=== PATIENT | male | born 1985 | race Caucasian/White ===

== ENCOUNTER 2017-02-16 02:50 | Inpatient (IN) | payer OTHER ==
--- NOTE | ~2017-02-16 | CO ---
Unit #: [id number] #: [id number] Patient: SERGO THOMAS [id number] [facility]. [place], [place] [address] [id number] I MR#: [id number] NAME: SERGO THOMAS ROOM: 45 Age: 31 Sex: M Admission Date: 02/16/2017 : 1985 Attending Physician: Molina Iverson M.D. Consultation Date: 02/18/2017 CONSULTATION REPORT REASON FOR CONSULTATION Confusion, agitation, delirium, substance abuse, bipolar disorder. HISTORY OF PRESENT ILLNESS Mr. Sergo Thomas is a 31-year-old white male who was admitted on 02/16/2017 with altered mental status, confusion, agitation. The patient was tested positive for amphetamine and opiates, and also took his bipolar medication Tegretol and trazodone. The patient seen in ICU 2, bed 9, at [facility] on 02/18/2017. The patient was unable to provide any reliable information, still confused, sleepy. The patient needed bilateral restrain. The patient was able to wake up with touch prompt and able to answer question about his name. The patient unable to provide any other information. PAST PSYCHIATRIC HISTORY Remarkable for history of bipolar mood disorder, history of suicide attempt, overdose, prior substance abuse previously treated at [facility]. At the time of admission, the patient was agitated and somnolent, increasingly aggressive. MEDICAL HISTORY The patient has a history of intravenous drug abuse, possible history of seizure disorder, history of MRSA. MEDICATION HISTORY The patient is currently on vancomycin, hydromorphone, Solu-Medrol. Please refer to MAR for details. FAMILY HISTORY AND SOCIAL HISTORY The patient has a good support system. No history of abuse. History of substance abuse as mentioned above. Urine drug screen was positive for opioids and amphetamines. REVIEW OF SYSTEMS Complete review of systems is unremarkable except for agitation. MENTAL STATUS EXAMINATION The patient vital signs; pulse 89, respirations 18, blood pressure 117/79, oxygen saturation 100%. General appearance; the patient dressed in hospital attire. The patient needed bilateral hand restrain, receiving IV fluids. Attention span and concentration, poor. Speech, minimal. Orientation, unable to assess. Confused. Mood and affect, flat. Thought process and thought content, unable to assess. Recent and remote memory, language, fund of knowledge, unable to assess. Insight and judgment, Unit #: [id number] #: [id number] Patient: SERGO THOMAS. DIAGNOSES Delirium, F05; amphetamine use disorder, severe, F15.20; opioid use disorder, severe, F11.20; bipolar mood disorder, recurrent severe, depressed, F31.9. Secondary diagnosis: Deferred. Medical diagnosis: Please refer to H and P. Stressors: Psychosocial stressor. ASSESSMENT/PLAN 1. Supportive psychotherapy and psychoeducation provided to the patient and family, but the patient unable to comprehend at this time. 2. Recommending at this time to continue with restraint for safety and continue with the inpatient treatment. 3. Advised Zyprexa 10 mg b.i.d. to help with mood symptom and above-mentioned symptom and advised to hold medication if the patient is too sleepy. We will continue to follow. Please feel free to call if any questions, telephone #[phone]. Dictated by... Ashley Carney/darrius TD: 02/19/2017 13:57 JOB #: [id number] CONSULTATION REPORT Page 1 of 1 X Natanael Nichols MD CONSULTATION REPORT
--- NOTE | ~2017-02-16 | CR72 ---
[facility] A Service of [facility] & [facility] RADIOLOGY TEXT RESULTS PATIENT: NEW HA LOCATION: [address] : [birth year] UNIT #: [id number] AGE: [address]: Moilna Iverson MD SEX: M ORDER DR: [id number] [facility] [address]. [place], [place] [address] [id number] I MR#: [id number] Acc #: [id number] NAME: NEW HA : 1985 SEX: M STUDY DATE/TIME: 02/16/2017 12:26 UNIT: [facility] ROOM: [facility] STUDY DESCRIPTION: CR Chest Single View Portable Attending Physician: Molina Iverson M.D. Ordering Physician: Molina Iverson M.D. Primary Care Physician: No Primary Care Physician MEDICAL IMAGING REPORT This report is preliminary unless electronic signature is present EXAM Portable chest 02/16/2017. INDICATIONS Shortness of air. Overdose this morning. COMPARISON AP portable chest compared with earlier today. FINDINGS Cardiac and mediastinal contours are normal. There is central vascular congestion with minimal bilateral perihilar opacities. This could reflect a mild degree of edema. Attention on followup is recommended. There is no pneumothorax. IMPRESSION Persistent mild vascular congestion, and there may be some minimal perihilar infiltrate bilaterally. This would suggest edema. Continued follow up is recommended. Dictated by... Ziggy Chaudhry Jr., M.D. THIS IS AN ELECTRONICALLY VERIFIED REPORT Ziggy Chaudhry Jr., M.D. at 02/18/2017 7:18 AM SIENA/zeke TD: 02/16/2017 17:37 JOB #: [id number] MEDICAL IMAGING REPORT Page 1 of 1 COPY
--- NOTE | ~2017-02-16 | CR72 ---
[facility] A Service of [facility] RADIOLOGY TEXT RESULTS PATIENT: NEW HA LOCATION: [address] : [birth year] UNIT #: [id number] AGE: [address]: Molina Iverson MD SEX: M ORDER DR: [id number] [facility] [address] [facility]. [place], [place] [address] [id number] I MR#: [id number] Acc #: [id number] NAME: NEW HA : 1985 SEX: M STUDY DATE/TIME: 02/19/2017 5:48 UNIT: [facility] ROOM: [facility] STUDY DESCRIPTION: CR Chest Single View Portable Attending Physician: Molina Iverson M.D. Ordering Physician: Robert Sraavia M.D. Primary Care Physician: No Primary Care Physician MEDICAL IMAGING REPORT This report is preliminary unless electronic signature is present EXAM Frontal chest 02/19/2017 INDICATIONS Shortness of air and confusion. Overdose patient. Dobbhoff tube placement. Shortness of breath. History of tobacco abuse. TECHNIQUE Frontal chest COMPARISON 02/18/2017 FINDINGS There has been interval placement of an enteric tube. Tip is below the diaphragm, but not in the field of view. Cardiac silhouette is stable. Lung volumes are low. Bronchovascular crowding with redemonstration of hazy opacities in the lung bases, right greater than left. No new effusion or pneumothorax. IMPRESSION 1. Slight improvement inspiratory result. Persistent haziness in the lung bases, right greater than left. 2. New enteric tube present, and the tip is below the diaphragm, but not om the field of view. Dictated by... Dustin Tenorio M.D. THIS IS AN ELECTRONICALLY VERIFIED REPORT Dustin Tenorio M.D. at 02/19/2017 3:31 PM [facility] A Service of [facility] RADIOLOGY TEXT RESULTS PATIENT: NEW HA LOCATION: [address] : [birth year] UNIT #: [id number] AGE: [address]: Molina Iverson MD SEX: M ORDER DR: MAYDA/zeke TD: 02/19/2017 13:30 JOB #: [id number] MEDICAL IMAGING REPORT Page 1 of 1 COPY
--- NOTE | ~2017-02-16 | CR7 ---
[facility] A Service of [facility] & [facility] RADIOLOGY TEXT RESULTS PATIENT: NEW HA [facility] [birth year] UNIT #: [id number] AGE: [address]: Molina Iverson MD SEX: M ORDER DR: [id number] [place], [place] [address] [id number] I MR#: [id number] Acc #: [id number] NAME: NEW HA : 1985 SEX: M STUDY DATE/TIME: 02/18/2017 11:04 UNIT: [facility] ROOM: [facility] STUDY DESCRIPTION: CR Abdomen Single AP View Attending Physician: Molina Iverson M.D. Ordering Physician: Molina Iverson M.D. Primary Care Physician: Primary Care Physician No MEDICAL IMAGING REPORT This report is preliminary unless electronic signature is present EXAM Frontal abdomen 02/18/2017 INDICATIONS Tube placement. Overdose patient. TECHNIQUE Frontal abdomen was performed COMPARISON No comparisons FINDINGS Enteric tube tip is at the level of the mid to distal body stomach. Postop changes of cholecystectomy present. Nonspecific hyperdense material projects over the right lower quadrant most likely reflecting flocculated barium or less likely sequela of prior shrapnel injury. Correlate with procedural history in this patient. There is mild levoscoliosis of the thoracolumbar spine. IMPRESSION Enteric tube tip at the level of the [id number] body stomach. Dictated by... Dustin Tenorio M.D. THIS IS AN ELECTRONICALLY VERIFIED REPORT Dustin Tenorio M.D. at 02/18/2017 5:04 PM DENNISEY/josh TD: 02/18/2017 15:17 JOB #: [id number] [facility] A Service of [facility] & [facility] RADIOLOGY TEXT RESULTS PATIENT: NEW HA LOCATION: [facility] : [birth year] UNIT #: [id number] AGE: [address]: Molina Iverson MD SEX: M ORDER DR: MEDICAL IMAGING REPORT Page 1 of 1 COPY
--- NOTE | ~2017-02-16 | DS ---
Unit #: [id number] #: [id number] Patient: NEW HA [id number] [address] [place], [place] [address] [id number] I MR#: [id number] NAME: NEW HA ROOM: 45 Age: 32 Sex: M Admission Date: 02/16/2017 : 1985 Discharge Date: 02/21/2017 Attending Physician: Molina Iverson M.D. Primary Care Physician: No Primary Care Physician DISCHARGE SUMMARY REASON FOR ADMISSION Suicidal intent/trazodone overdose. HISTORY OF PRESENT ILLNESS/HOSPITAL COURSE Please see H and P for complete details. Patient initially was transferred from outside facility secondary to above, secondary to acute respiratory failure, was intubated en route, was placed in the ICU. Consultation was placed to Dr. Saravia and associates for evaluation. Patient underwent routine ICU course. After he was extubated, he was placed on 72-hour hold secondary to concern for possible suicidal intention. Consultation was also placed to Dr. Nichols who medically cleared patient for discharge home. The patient was also seen and evaluated by Dr. Dempsey of neurology services secondary to prior history of seizure disorder as well as management of seizures. Dr. Dempsey made recommendation for Keppra 500 mg p.o. b.i.d. in lieu of Trileptal. It was later learned the patient actually took an increased amount of Trileptal secondary to suicidal intent. His electrolytes and other laboratory studies were appropriately corrected while here. He did have underlying presumed aspiration pneumonia to which he was treated with IV Zosyn and subsequently transitioned to p.o. Augmentin at time of discharge. FINAL DISCHARGE DIAGNOSES 1. Suicidal intention. 2. Trileptal overdose. 3. Prior history of seizure disorder. 4. Presumed clinical aspiration pneumonia. FINAL DISCHARGE MEDICATIONS 1. Augmentin 875 mg p.o. b.i.d. x2 days. 2. Keppra 500 mg p.o. b.i.d. DISCHARGE CONDITION Stable. DISCHARGE DISPOSITION Home. FOLLOWUP 1. Followup outpatient family physician within 7-10 days. 2. Followup for supportive psych[facility] as [facility] Psychiatry did make a recommendation for Zyprexa Unit #: [id number] #: [id number] Patient: NEW HA 10 mg p.o. b.i.d. Patient stated that he would consider this medication after discussion with his family physician. Dictated by... Ashley Quinonez/terese TD: 03/20/2017 10:24 JOB #: [id number] DISCHARGE SUMMARY Page 1 of 1 X Molina Iverson MD X DISCHARGE SUMMARY
--- NOTE | ~2017-02-16 | FU ---
[facility] DATE: 02/19/17 Patient: NEW HA Physician: HARMONY Address: [address] [place] [address] Room/Bed: [address], Zip: [place] [address] Admit Date: 02/16/17 Date of : [birth year] Height: 5 8 Weight: 160 73 NUTRITION MONITORING/FOLLOW-UP: Reason: PT SEEN FOR FOLLOW-UP/ENTERAL NUTRITION SUPPORT DX: OVERDOSE Anthropometrics: 5'6", WT: 160# (73 KG), BMI: 25.8 -ADMIT WEIGHT: 151# Labs: GLU: 118, PHOS: 2.0 Meds: SOLU-MEDROL, KCL, MAG SULFATE, ZOFRAN I&O's: 9088/5755 Skin: PREVIOUSLY NOTED EDEMA: BUE TRACE EDEMA Estimated Nutrition Needs: 3169-7019 KCAL 75-90 G PRO Assessment: CHART REVIEWED AND EVENTS NOTED. PT SEEN FOR ENTERAL NUTRITION SUPPORT FOLLOW-UP. PT ASLEEP AT TIME OF VISIT RECEIVING ALTERNATIVE NUTRITION SUPPORT OF JEVITY 1.5 @ 40 ML/HR. PER RN AND CHART, PT TOLERATING EN, NOTING NO ISSUES AT THIS TIME. PER PUMP HISTORY, PT RECEIVING ~58% TOTAL VOLUME PAST 24 HOURS. PT DID NOT WAKE TO VERBAL CUES. FAMILY IN ROOM ASLEEP AT BEDSIDE. PT NOT APPROPRIATE FOR DIET EDUCATION AT THIS TIME. RD TO CONTINUE TO FOLLOW. Dx: INADEQUATE PROTEIN-ENERGY INTAKE R/T CURRENT DIAGNOSIS AEB NPO.-RESOLVED/IN PROGRESS NEW DX: INADEQUATE PROTEIN-ENERGY INTAKE R/T CURRENT DIAGNOSIS AEB PT RECEIVING ENTERAL NUTRITION SUPPORT. Intervention: 1. ENTERAL NUTRITION SUPPORT Monitoring, Evaluation and Goals: 1. ORAL INTAKE; ADVANCE DIET AND CONSUME/TOLERATE >50% OF MEALS-NOT ACTIVE 2. ENTERAL NUTRITION; PROVIDE >80% ESTIMATED GOAL VOLUME-NOT MET/IN PROGRESS 3. WEIGHTS; PROMOTE WEIGHT MAINTENANCE-IN PROGRESS 4. LABS; WNL-IN PROGRESS 5. GI; PROMOTE REGULAR BOWEL FUNCTION-IN PROGRESS MONITOR: [facility] DATE: 02/19/17 Patient: NEW HA Physician: HARMONY Address: [address] [place] [address] Room/Bed: [address], Zip: [place] [address] Admit Date: 02/16/17 Date of : [birth year] Height: 5 8 Weight: 160 73 -TF RATE/RESIDUALS -WEIGHTS -TANK COOPER EVAL? -LABS Recommendations: 1. ADVANCE CURRENT ENTERAL NUTRITION SUPPORT OF JEVITY 1.5 TO GOAL RATE OF 50 ML/HR X 24 HOURS PER PT TOLERANCE -PROVIDES 1800 KCAL, 77 G PRO, 912 ML FREE H20 ADD FREE H20 FLUSHES PER MD 2. ONCE FEASIBLE, CONTINUE TANK COOPER INTERVENTION TO DETERMINE IF THE PT CAN TOLERATE PO INTAKE RD WILL F/U PER PROTOCOL PT IS MOD/SEVERELY COMPROMISED Respectfully, CORNELIUS ESTRADA MS, RD, LD Food and Nutritional Services [facility] [place] [facility] cc: client file
--- NOTE | ~2017-02-16 | CR72 ---
[facility] A Service of [facility] RADIOLOGY TEXT RESULTS PATIENT: NEW HA LOCATION: [address] : [birth year] UNIT #: [id number] AGE: [address]: Molina Iverson MD SEX: M ORDER DR: [id number] [place], [place] [address] [id number] I MR#: [id number] Acc #: [id number] NAME: NEW HA : 1985 SEX: M STUDY DATE/TIME: 02/18/2017 4:42 UNIT: [facility] ROOM: [facility] STUDY DESCRIPTION: CR Chest Single View Portable Attending Physician: Molina Iverson M.D. Ordering Physician: Robert Saravia M.D. Primary Care Physician: Primary Care Physician No MEDICAL IMAGING REPORT This report is preliminary unless electronic signature is present EXAM Portable chest INDICATIONS Shortness of air and chest congestion today. PROCEDURE Frontal view chest. COMPARISON 02/17/2017 FINDINGS Heart size is stable, patchy opacities in the lung bases are unchanged. No new dense consolidation or pneumothorax. IMPRESSION Stable. Dictated by... Krzysztof Alcala M.D. THIS IS AN ELECTRONICALLY VERIFIED REPORT Krzysztof Alcala M.D. at 02/18/2017 10:27 PM EED/ruben TD: 02/18/2017 05:15 JOB #: [id number] MEDICAL IMAGING REPORT [facility] A Service of [facility] RADIOLOGY TEXT RESULTS PATIENT: NEW HA LOCATION: [address] : [birth year] UNIT #: [id number] AGE: [address]: Molina Iverson MD SEX: M ORDER DR: Page 1 of 1 COPY
--- NOTE | ~2017-02-16 | A ---
[facility] Nutrition Therapy DATE: 02/17/17 Patient: NEW HA Physician: HARMONY Address: [address] [facility] Room/Bed: [address], Zip: [place] [address] Admit Date: 02/16/17 Date of : [birth year] Height: 5 8 Weight: 154 70 NUTRITIONAL ASSESSMENT: REASON: NPO IN ICU ASSESSMENT PT IS 31 Y.O. MALE ADMITTED FOR OVERDOSE PMH: POLYSUBSTANCE ABUSE, IV DRUG ABUSE, SEIZURE DISORDER, DEPRESSION, GERD, MRSA, ASTHMA, COLON RESECTION W/COLOSTOMY Anthropometrics: 5'6", WT: 151# (BEDSIDE) (69 KG), BMI: 24.4 Labs: GLU: 125, CA+:8.0, K+:2.9 Meds: ZOFRAN, SOLU-MEDROL, KCL I/O & Bowel function: 2604/3250, COLOSTOMY IN PLACE Skin Integrity: NO KNOWN SKIN ISSUES Estimated Nutrition Needs: 3274-4337 KCAL (25-30 KCAL/KG BW) 75-90 G PRO (1.1-1.3 G PRO/KG BW) FLUIDS CONSISTENT W/KCAL NEEDS OR MANAGE PER MD Assessment: CHART REVIEWED AND EVENTS NOTED. PT SEEN FOR NPO IN ICU ASSESSMENT. PT CURRENTLY ASLEEP ON HIGH FLOW OXYGEN. PER RN AND CHART, PT NOTED TO BE COMBATIVE, RESTLESS, ANXIOUS AND CONFUSED SINCE ADMIT TO ICU. SCRUM MASTER DEEMS PT NOT APPROPRIATE FOR DIET ADVANCEMENT AT THIS TIME. NO CURRENT PLANS IN PLACE FOR ALTERNATIVE NUTRITION SUPPORT AT THIS TIME. NO FAMILY IN ROOM AT TIME OF VISIT. RD TO FOLLOW. SEE RECOMMENDATIONS BELOW. Dx: INADEQUATE PROTEIN-ENERGY INTAKE R/T CURRENT DIAGNOSIS AEB NPO STATUS. Intervention: 1. NPO Monitoring, Evaluation and Goals: 1. ORAL INTAKE; ADVANCE DIET AND CONSUME/TOLERATE >50% OF MEALS 2. ENTERAL NUTRITION; PROVIDE >80% ESTIMATED TOTAL NEEDS AT GOAL RATE 3. WEIGHTS; PROMOTE WEIGHT MAINTENANCE 4. LABS; WNL 5. GI; PROMOTE REGULAR BOWEL FUNCTION MONITOR: -DIET ADVANCEMENT/PO INTAKE/APPETITE [facility] Nutrition Therapy DATE: 02/17/17 Patient: NEW HA Physician: HARMONY Address: [address] [facility] Room/Bed: [address], Zip: [place] [address] Admit Date: 02/16/17 Date of : [birth year] Height: 5 8 Weight: 154 70 -PLANS FOR SUPPORT -WEIGHTS Recommendations: 1. PLEASE REPLETE K+ LEVEL 2. ONCE MEDICALLY FEASIBLE, ADVANCE DIET PER SCRUM MASTER + REGULAR DIET 3. IF PT REMAINS NPO >3 DAYS OR/AND INTUBATED, RECOMMEND TO PLACE DHT AND BEGIN ALTERNATIVE NUTRITION SUPPORT OF JEVITY 1.5 @ 20 ML/HR, ADVANCE 10 ML q 6 HOURS TO GOAL RATE OF 50 ML/HR -PROVIDES 1800 KCAL, 77 G PRO, 912 ML FREE H20 ADD FREE H20 FLUSHES OF 180 ML q 4 HOURS TO MEET PT'S CURRENT ESTIMATED FLUID NEEDS OR MANAGE PER MD RD WILL F/U PER PROTOCOL PT IS MOD/SEVERELY COMPROMISED Respectfully, CORNELIUS ESTRADA MS, RD, LD Food and Nutritional Services [facility] cc: client file
--- NOTE | ~2017-02-16 | CO ---
Unit #: [id number] #: [id number] Patient: NEW HA [id number] [facility] [address]. [place], [place] [address] [id number] MR#: [id number] NAME: NEW HA ROOM: [facility] Age: 31 Sex: M Admission Date: 02/16/2017 : 1985 Attending Physician: Molina Iverson M.D. Primary Care Physician: Primary Care Physician No Consultation Date: 02/17/2017 CONSULTATION REPORT PRIMARY CARE PHYSICIAN Not listed. REASON FOR CONSULTATION Mental status changes, Tegretol versus trazodone overdose. PATIENT IDENTIFICATION This is a 31-year-old, unknown handedness, male, evaluated in ICU room 9 at [facility]. SOURCE OF INFORMATION Obtained from the medical record. HISTORY OF PRESENT ILLNESS This is a 31-year-old, unknown handedness, male with a past medical history of IV drug use, possible seizure disorder in the past, MRSA, who presents to [facility] with mental status changes, drug overdose, and possible acute rhabdomyolysis. The patient had apparently witnessed generalized seizure activity around 03:45 a.m. this morning. He was started on Keppra. He had reported similar activity yesterday, but at that time responded to noxious stimuli. His last reported seizure was at the age of 17 according to family. I am unable to obtain review of systems from the patient as he is altered. As per the H and P, the patient was originally seen at [facility] secondary to mental status change as well as polysubstance abuse. I was concerned that it was possibly intentional. He was transferred subsequently to [facility] for ICU management and was noted to have very shallow breathing. He apparently received Narcan. At that time, he became combative and confused. While at the outside facility, there was concern for possible respiratory compromise and thus the patient was transferred to [facility] for further evaluation. He is not intubated and is maintaining his airway. He does become agitated and moaning at times. Other times, he is essentially obtunded. The patient is unable to provide any history or review of systems. He had a head CT done at the outside facility on 02/15/2017. It was negative for acute findings. He had a urine tox screen done at the outside facility as well. It was positive for opiates and amphetamines. There was concern about whether he may have overdosed on Tegretol or trazodone. The patient, per family report and discussion with nursing staff, apparently has not been on seizure medication for several years and has not been taking prescription medications. It was reported also that apparently he had been on recent amphetamine or meth binge and had taken some trazodone to sleep. There is a question about whether the medication overdose may have been intentional, but that is Unit #: [id number] #: [id number] Patient: NEW HA unclear. Again, the patient is unable to provide any history or review of systems as he is altered. PAST MEDICAL HISTORY 1. Intravenous drug use. 2. Polysubstance abuse. 3. Possible history of seizure disorder with last event at the age of 17. 4. MRSA. 5. Laparoscopic cholecystectomy. 6. Finger surgery. 7. Ankle surgery. 8. Elbow surgery. 9. Vasectomy. 10. Colon resection with colostomy, details not clear. FAMILY HISTORY Unknown. SOCIAL HISTORY Per the medical record, positive for polysubstance abuse and IV drug use. Urine tox screen from outside facility is positive for opioids and amphetamines. I do not know his history of alcohol or tobacco use. Looking at chart review, it does indicate positive tobacco use on a daily basis. REVIEW OF SYSTEMS Unable to obtain given the patient's mental status. ALLERGIES No known drug allergies documented, however, below that in Flavour[place], morphine is listed with a notation beside that the patient becomes violent and erratic. MEDICATIONS There are no documented home medications. PHYSICAL EXAMINATION VITAL SIGNS: Temperature 98.0, he has essentially been afebrile, he did have one elevated temperature over 100 this morning; pulse 105; respirations 16; blood pressure 109/65, blood pressure in the ER on arrival was 130/96; and oxygen saturation 100%. Height 5 feet 8 inches, weight 154 pounds, BMI 22. NEUROLOGIC: The patient is not intubated. He has received some p.r.n. Ativan, but not actively sedated at the time of evaluation, but had received some Ativan earlier in the morning. He was essentially obtunded, but has periods of agitation and moaning. He does withdraw from noxious stimuli. He groans and responds to noxious stimuli. He does not visually track. His pupils are pinpoint. He does have positive corneals. He has no meningismus on exam. Cranial nerve exam, again unable to evaluate his riley of vision. He does not visually track. Eye movements, however, are conjugate. No ptosis or nystagmus or hippus. Unable to assess sensation of face and scalp or strength of muscles of facial expression. No asymmetry seen with grimace. Unable to assess hearing, tongue, uvula, or palate. Head turning is unremarkable spontaneously. Neck is supple. Motor exam, he withdraws from noxious stimuli equally in all extremities. Sensory exam, he withdraws from noxious stimuli. Gait and Romberg deferred. Reflexes, 1/4. Toes are equivocal. Coordination, unable to assess. Unit #: [id number] #: [id number] Patient: NEW HA DIAGNOSTIC STUDIES Please see above. IMAGING STUDIES: Chest x-ray from 02/17/2017; impression per Radiology report #1, increasing alveolar opacity within the mid to lower lung zone suspicious for edema, but could also represent infiltrate. LABORATORY RESULTS: Blood cultures, preliminary, no growth after 24 hours x2 sets. Sodium 142, potassium 2.9, chloride 106, CO2 of 31, glucose 125, BUN 11, creatinine 1.2, estimated GFR 80.1, calcium 8, and CK 83. White blood cell count 13.8, hemoglobin 13.3, hematocrit 41.3, and platelet count 144. PH 7.448, pCO2 of 44.6, and pO2 of 53. BNP is 121. Urinalysis; 5 to 10 white cells, 100 to 200 red cells, 3+ blood, and bacteria negative. Procalcitonin 0.13. Original CK 2190. Initial white count 15.6. Initial troponin less than 0.03. PT 13.3, INR 1.2, and PTT 29.2. IMPRESSION 1. Generalized seizure activity with reported history of seizure disorder, possible provoked. Continue Keppra. EEG has been requested and been done. Dr. Dempsey has read that, it shows slowing and spindles, but no seizure or status. 2. Drug overdose, possible intentional versus unintentional. 3. Acute rhabdomyolysis. Repeat CK today is down to 808. 4. Aspiration versus pulmonary edema, Pulmonology following. PLAN The patient is currently afebrile. Family reports that the patient took trazodone to sleep after a meth binge. There has been a report that he takes any seizure medications for years. High suspicion would be for trazodone use rather than Tegretol overdose. We will check a carbamazepine level however. Urine tox is positive for amphetamines and opioids. EEG again shows slowing and spindles, but no seizure or status. We will continue the patient on Keppra. Pending workup and further clinical course given his history and concerned possibly that he could have hypoxic encephalopathy versus withdrawal. He is not a candidate for imaging at this time. Further recommendations to be made pending workup and further clinical course. We will follow along with you. Dictated by... Bonnie Charlton A.P.R.N. for Ashley Petersen/darrius TD: 02/19/2017 05:19 JOB #: [id number] Unit #: [id number] #: [id number] Patient: NEW HA CONSULTATION REPORT Page 1 of 1 X Bonnie Charlton APRN X CONSULTATION REPORT
--- NOTE | ~2017-02-16 | EE ---
Unit #: [id number] #: [id number] Patient: NEW HA [id number] [address] [address] [id number] I MR#: [id number] NAME: NEW HA : 1985 SEX: M STUDY DATE/TIME: 02/17/2017 UNIT: [facility] ROOM: [facility] STUDY DESCRIPTION: EEG Attending Physician: Molina Iverson M.D. Referring Physician: Bonnie Charlton A.P.R.N. Primary Care Physician: No Primary Care Physician NEURODIAGNOSTICS REPORT EXAM EEG REASON FOR THE STUDY Overdose, mental status changes. EEG DESCRIPTION This is an inpatient, digitally recorded multi-montage adult EEG with leads placed according to the International 10-20 System. Hyperventilation and photic stimulation was not done. This EEG showed diffuse slowing. The patient is on a ventilator, unresponsive. There are diffuse spindles throughout the recording. Nothing suggesting a seizure, nothing suggesting status. No clinical events were seen. Hyperventilation and photic stimulation was not done. IMPRESSION Diffusely slow EEG with diffuse spindles which is a poor prognostic sign but may not mean anything because the patient may be sedated, but nothing suggesting seizure or status. Clinical correlation is recommended. An EEG like this does not rule out epilepsy. Dictated by... Ashley Petersen/saida TD: 02/18/2017 07:31 JOB #: [id number] NEURODIAGNOSTICS REPORT Page 1 of 1 X Arlette Dempsey MD NEURODIAGNOSTICS REPORT
--- NOTE | ~2017-02-16 | CR72 ---
[facility] A Service of [facility] RADIOLOGY TEXT RESULTS PATIENT: NEW AH LOCATION: [address] : [birth year] UNIT #: [id number] AGE: [address]: Molina Iverson MD SEX: M ORDER DR: [id number] [facility] [address] [facility]. [place], [place] [address] [id number] MR#: [id number] Acc #: [id number] NAME: NEW HA : 1985 SEX: M STUDY DATE/TIME: 02/17/2017 5:30 UNIT: [facility] ROOM: [facility] STUDY DESCRIPTION: CR Chest Single View Portable Attending Physician: Molina Iverson M.D. Ordering Physician: Robert Saravia M.D. Primary Care Physician: No Primary Care Physician MEDICAL IMAGING REPORT This report is preliminary unless electronic signature is present EXAM Portable chest. INDICATIONS Shortness of air today. PROCEDURE Frontal view chest. COMPARISON 02/16/2017 FINDINGS Heart size unchanged. Increasing alveolar opacities in the [id number] lung zones. No pneumothorax. IMPRESSION Increasing alveolar opacity in jtt-pi-jerje lung zones suspicious for edema, but could also represent infiltrate. Dictated by... Krzysztof Alcala M.D. THIS IS AN ELECTRONICALLY VERIFIED REPORT Krzysztof Alcala M.D. at 02/17/2017 10:27 PM EED/alba TD: 02/17/2017 09:05 JOB #: [id number] MEDICAL IMAGING REPORT Page 1 of 1 COPY
--- NOTE | ~2017-02-16 | HP ---
Unit #: [id number] #: [id number] Patient: NEW HA [id number] [facility] [address]. [place], [place] [address] [id number] I MR#: [id number] NAME: NEW HA ROOM: [facility] Age: 31 Sex: M Admission Date: 02/16/2017 : 1985 Attending Physician: Molina Iverson M.D. HISTORY AND PHYSICAL REASON FOR ADMISSION Mental status change, polysubstance abuse/overdose. HISTORY OF PRESENT ILLNESS Please note, this History of Present Illness, as well as Review of Systems has been elicited through chart review as patient currently is alert and oriented x0. He is agitated and somnolent at times and increasingly aggressive, and therefore, I was unable to have any HPI and/or Review of Systems discussed with patient secondary to current condition. From what I can gather, the patient was originally seen at [facility] secondary to mental status change, as well as polysubstance abuse. He was transferred subsequently to [facility] for ICU management. He was noted to have very shallow breathing. He received a dose of Narcan I believe x8 or 8 mg, I am not entirely sure. After he had received Narcan, he became combative and confused, and he presented to the outside facility. While there at the outside facility, they became concerned for possible respiratory compromise and/or decline and thus decided to transfer patient to [facility] for further evaluation. PAST MEDICAL HISTORY 1. Intravenous drug use. 2. Polysubstance abuse. 3. Possible history of seizure disorder. 4. Prior history of MRSA. 5. Prior history of laparoscopic cholecystectomy. 6. Finger surgery. 7. Ankle surgery. 8. Elbow surgery. 9. Vasectomy. 10. Colon resection with colostomy for details unclear. FAMILY HISTORY Reviewed and noncontributory or non-pertinent. SOCIAL HISTORY Polysubstance abuse and IV drug use per reports. I am not sure about alcohol and/or tobacco. Chart review indicates positive tobacco use on a daily basis one to one and a half packs. REVIEW OF SYSTEMS Limited secondary to current condition, otherwise, as per History of Present Illness. Unit #: [id number] #: [id number] Patient: NEW HA PHYSICAL EXAMINATION VITAL SIGNS: At outside facility, temperature 96.9, pulse 105, respiratory rate 14, and blood pressure 136/90. GENERAL APPEARANCE: Patient is a 31-year-old male, comfortable, confused, combative, and disoriented, but no acute distress. HEAD: Atraumatic and normocephalic. EARS: Tympanic membranes do not reveal any erythema or injection. NECK: Supple. CARDIOVASCULAR: S1 and S2, tachycardic, without murmur. RESPIRATORY: Coarse breath sounds are noted with diminished air exchange. LOWER EXTREMITIES: No evidence of any lower extremity edema and no calf tenderness. NEUROLOGIC: Alert and oriented x0. DIAGNOSTIC STUDIES INITIAL LABORATORY AT OUTSIDE FACILITY: Cardiac enzymes x2 sets negative. Sodium 142. BMP relatively unremarkable. Glucose 94 and creatinine 1.34 initially and repeat 1.23. Urine toxicology positive for amphetamines and opioids. Hemoglobin 15.7. INITIAL IMPRESSION 1. Toxic metabolic encephalopathy/mental status change secondary to drug overdose. 2. Polysubstance abuse. 3. Ongoing IV drug abuse. PLAN Admission ICU. Multifocal Button Grinder consult. IV fluids. Observation. P.r.n. Ativan for agitation. Dr. Nichols consult. Routine laboratory studies. Noted patient did have elevated CPK level greater than 2000 consistent with mild acute rhabdomyolysis. Will continue IV fluids. Echocardiogram has already been ordered in light of IV drug abuse history and possible underlying endocarditis. Blood cultures are currently pending. Overall long-term prognosis of this patient is guarded at the present time. Will await family members to arrive to discuss overall level of care. Dictated by Ashley Quinonez/bon TD: 02/16/2017 18:48 JOB #: [id number] HISTORY AND PHYSICAL Page 1 of 1 X Molina Iverson MD X HISTORY AND PHYSICAL
--- NOTE | ~2017-02-16 | CO ---
Unit #: [id number] #: [id number] Patient: NEW HA [id number] [address] [place], [place] [address] [id number] I MR#: [id number] NAME: NEW HA ROOM: [facility] Age: 31 Sex: M Admission Date: 02/16/2017 : 1985 Attending Physician: Molina Iverson M.D. Primary Care Physician: Primary Care Physician No Consultation Date: 02/16/2017 CONSULTATION REPORT REASON FOR CONSULTATION ICU observation, polydrug overdose. HISTORY OF PRESENT ILLNESS A 31-year-old gentleman, who apparently has a history of depression and has been at [facility]. Apparently, he had polydrug overdose, it was intentional. He currently has been sedated with Ativan and cannot add to the history. He apparently was at [facility] in [place] and was transferred here. Tox screen there showed amphetamines and opiates. PAST MEDICAL HISTORY Remarkable for asthma, gastroesophageal reflux, previous admission for overdose and depression. He apparently was discharged from [facility] in 2012 and there was mention of bipolar disorder. MEDICATIONS At home are unknown, I do not see a formal med rec sheet. ALLERGIES No known medical allergies per past EHR. SOCIAL HISTORY Unobtainable. Obviously some degree of polysubstance abuse. FAMILY HISTORY Unavailable. REVIEW OF SYSTEMS Unavailable. PHYSICAL EXAMINATION GENERAL: Reveals a gentleman, who is comfortable in the intensive care unit on 2 L nasal cannula. VITAL SIGNS: He is afebrile, pulse is 113, respiratory rate 17, blood pressure 119/65, 5 feet 8 inches, 151 pounds. HEENT: Pupils are equal, round, and reactive to light. Sclerae anicteric. Head, atraumatic. NECK: Supple. No supraclavicular or cervical adenopathy appreciated. CHEST: Limited exam reveals equal breath sounds. No wheeze, stridor, or consolidation. CARDIAC: Reveals regular rate and rhythm. No pathologic murmur, rub, or gallop. ABDOMEN: Soft and nontender. No hepatomegaly or rebound. EXTREMITIES: Reveal no clubbing, cyanosis, or edema. No calf tenderness. Unit #: [id number] #: [id number] Patient: NEW HA SKIN: Multiple tattoos. No acute rash. NEUROLOGIC: He apparently was agitated and required Ativan. He currently is somnolent. DIAGNOSTIC STUDIES LABORATORY RESULTS: BUN is 14, creatinine is 1.3. CK elevated at 2190. INR was normal. White blood cell count 15.6, hemoglobin 13.5, and platelet count normal. Tox screen, as above. Urinalysis, I do not see where it has been performed. Blood cultures are pending. IMAGING STUDIES: Chest x-ray, perihilar infiltrates consistent with pulmonary edema. CARDIOVASCULAR STUDIES: I do not see any EKG. IMPRESSION 1. Polysubstance overdose, possibly intentional. History is unavailable. 2. Abnormal chest x-ray. Aspiration versus pulmonary edema. 3. Elevated CK consider possible rhabdomyolysis. 4. History of asthma without active wheezing. 5. History of gastroesophageal reflux and depression. 6. Poor database. PLAN ICU observation, psychiatry evaluation. I will change IV fluids to contain bicarb. Antibiotics for now and recheck his white blood cell count and chest x-ray in the morning. I will also check urine for urinalysis. Thank you very much for allowing me to participate in the care of Mr. Flanagan. Dictated by... Robert Saravia M.D. MISTY/darrius TD: 02/17/2017 02:42 JOB #: [id number] CONSULTATION REPORT Page 1 of 1 X Robert Saravia MD X CONSULTATION REPORT
[~2017-02-16 02:50] MED LIST: TRILEPTAL600 MG PO
[2017-02-16 09:49] LABS: BASOPHIL% 0.2 % (0-2.5); DIFF IND YES; HEMATOCRIT 42.1 % (38.0-50.0); HEMOGLOBIN 13.5 gm/dL (13.0-16.0); LYMPHOCYTE# 0.6 X10e3 (1.0-3.5); LYMPHOCYTE% 3.6 % (17.0-45.0); MEAN CELL VOLUME 87.2 FL (83-96); MEAN CORPUSCULAR HGB CONC 32.1 g/dL (30-36); MONOCYTE# 0.7 X10e3 (0-1.0); MONOCYTE% 4.7 % (3.0-12.0); NEUTROPHIL# 14.2 X10e3 (1.5-7.1); NEUTROPHIL% 91.5 % (40-75); PLATELET COUNT 160 X10e3 (140-420); RED BLOOD COUNT 4.83 X10e (3.90-5.60); RED CELL DISTRIBUTION WIDTH 14.1 % (11.0-15.5); WHITE BLOOD COUNT 15.6 X10e3 (4.0-10.5)
[2017-02-16 10:00] LABS: INR 1.2; PARTIAL THROMBOPLASTIN TIME 29.2 SECONDS (23.5-31.3); PROTHROMBIN TIME (PATIENT) 13.3 SECONDS (10.0-11.7)
[2017-02-16 10:34] LABS: ALBUMIN SERUM 3.5 g/dL (3.5-5.0); BILIRUBIN,TOTAL 1.2 mg/dL (0.2-2.0); BUN/CREATININE RATIO 10.76; CALCIUM SERUM 7.8 mg/dL (8.4-10.2); CREATININE SERUM 1.3 mg/dL (0.6-1.4); GLOM FILT RATE Estimated 72.7 mL/min (>60); POTASSIUM 3.5 mmol/L (3.5-5.1); PROTEIN TOTAL SERUM 6.3 g/dL (6.0-8.3)
[2017-02-16 10:48] LABS: PLATELET ESTIMATE NORMAL (NORMAL)
[2017-02-16 10:53] LABS: %MB 2.5 % (0.0-4.0); MB 54.7 ng/ml
[2017-02-16 14:26] LABS: URINE SOURCE CATH
[2017-02-16 14:42] LABS: URINE APPEARANCE CLOUDY; URINE BILIRUBIN NEG (NEG); URINE BLOOD 3+ (NEG); URINE COLOR DK YELLOW; URINE GLUCOSE NEG (NEG); URINE KETONE 2+ (NEG); URINE LEUKOCYTE ESTERASE 1+ (NEG); URINE NITRATE NEG (NEG); URINE PROTEIN TRACE (NEG); URINE SPECIFIC GRAVITY 1.018 (1.003-1.035); URINE UROBILINOGEN 0.2 MG/DL (NEG)
[2017-02-16 14:44] LABS: URBCS1 AUWI 100-200 /[HPF] (0-2); URINE BACTERIA AUWI NEG (NEGATIVE); URINE SQUAMOUS EPITHELIAL CELL NONE SEEN /[HPF]
[2017-02-16 16:41] LABS: ARTERIAL BLD GAS O2 SATURATION 86.4 % (90.0-100.0); ARTERIAL BLOOD GAS CARBOXY HB 0.9 %sat (0.0-9.0); ARTERIAL BLOOD GAS MET HB 0.6 %sat (0.0-2.0); ARTERIAL BLOOD GAS PCO2 39.9 mmHg (35.0-45.0)
[2017-02-16 16:42] LABS: ARTERIAL BLOOD GAS ALLEN TEST NORMAL; ARTERIAL BLOOD GAS ART SITE LEFT RADIAL; ARTERIAL BLOOD GAS DELIVERY VENTURI MASK; ARTERIAL DRAW? YES
[2017-02-17 03:35] LABS: ARTERIAL BLD GAS O2 SATURATION 87.6 % (90.0-100.0); ARTERIAL BLOOD GAS CARBOXY HB 0.6 %sat (0.0-9.0); ARTERIAL BLOOD GAS HCO3 30.8 mmol/L; ARTERIAL BLOOD GAS MET HB 0.6 %sat (0.0-2.0); ARTERIAL BLOOD GAS PCO2 44.6 mmHg (35.0-45.0); ARTERIAL BLOOD GAS pH 7.448 (7.350-7.450)
[2017-02-17 03:36] LABS: ARTERIAL BLOOD GAS ART SITE RIGHT BRACHIAL; ARTERIAL BLOOD GAS DELIVERY NON REBREATHER MASK; ARTERIAL DRAW? YES
[2017-02-17 05:26] LABS: BASOPHIL% 0.2 % (0-2.5); HEMATOCRIT 41.3 % (38.0-50.0); HEMOGLOBIN 13.3 gm/dL (13.0-16.0); LYMPHOCYTE# 0.5 X10e3 (1.0-3.5); LYMPHOCYTE% 3.5 % (17.0-45.0); MEAN CELL VOLUME 86.9 FL (83-96); MEAN CORPUSCULAR HGB CONC 32.2 g/dL (30-36); MEAN PLATELET VOLUME 9.6 FL (6.5-11.5); MONOCYTE# 0.6 X10e3 (0-1.0); MONOCYTE% 4.7 % (3.0-12.0); NEUTROPHIL# 12.7 X10e3 (1.5-7.1); NEUTROPHIL% 91.6 % (40-75); PLATELET COUNT 144 X10e3 (140-420); RED BLOOD COUNT 4.75 X10e (3.90-5.60); RED CELL DISTRIBUTION WIDTH 14.2 % (11.0-15.5); WHITE BLOOD COUNT 13.8 X10e3 (4.0-10.5)
[2017-02-17 05:33] LABS: DIFF IND NO
[2017-02-17 05:45] LABS: BUN/CREATININE RATIO 9.16; CREATININE SERUM 1.2 mg/dL (0.6-1.4); GLOM FILT RATE Estimated 80.1 mL/min (>60)
[2017-02-17 05:54] LABS: POTASSIUM 2.9 mmol/L (3.5-5.1)
[2017-02-18 06:09] LABS: BASOPHIL% 0.1 % (0-2.5); LYMPHOCYTE# 0.4 X10e3 (1.0-3.5); LYMPHOCYTE% 5.7 % (17.0-45.0); MEAN CORPUSCULAR HEMOGLOBIN 28.5 PG (28-34); MEAN CORPUSCULAR HGB CONC 32.7 g/dL (30-36); MEAN PLATELET VOLUME 9.6 FL (6.5-11.5); MONOCYTE# 0.3 X10e3 (0-1.0); MONOCYTE% 4.8 % (3.0-12.0); NEUTROPHIL# 6.3 X10e3 (1.5-7.1); NEUTROPHIL% 89.4 % (40-75); PLATELET COUNT 122 X10e3 (140-420); RED BLOOD COUNT 3.91 X10e (3.90-5.60); RED CELL DISTRIBUTION WIDTH 14.1 % (11.0-15.5)
[2017-02-18 06:35] LABS: DIFF IND NO; HEMOGLOBIN 11.1 gm/dL (13.0-16.0)
[2017-02-18 07:01] LABS: BUN/CREATININE RATIO 17.14; CALCIUM SERUM 7.9 mg/dL (8.4-10.2); CREATININE SERUM 0.7 mg/dL (0.6-1.4); GLOM FILT RATE Estimated 125.8 mL/min (>60); MAGNESIUM 1.9 mg/dL (1.6-3.0); POTASSIUM 3.7 mmol/L (3.5-5.1)
[2017-02-19 06:36] LABS: BUN/CREATININE RATIO 14.44; CALCIUM SERUM 8.4 mg/dL (8.4-10.2); CREATININE SERUM 0.9 mg/dL (0.6-1.4); GLOM FILT RATE Estimated 113.4 mL/min (>60); POTASSIUM 3.6 mmol/L (3.5-5.1)
[2017-02-19 07:04] LABS: BASOPHIL% 0.1 % (0-2.5); EOSINOPHIL% 0.1 % (0.0-7.0); HEMATOCRIT 38.8 % (38.0-50.0); HEMOGLOBIN 12.6 gm/dL (13.0-16.0); LYMPHOCYTE# 0.8 X10e3 (1.0-3.5); LYMPHOCYTE% 9.6 % (17.0-45.0); MEAN CELL VOLUME 87.2 FL (83-96); MEAN CORPUSCULAR HEMOGLOBIN 28.4 PG (28-34); MEAN CORPUSCULAR HGB CONC 32.6 g/dL (30-36); MEAN PLATELET VOLUME 10.1 FL (6.5-11.5); MONOCYTE# 0.4 X10e3 (0-1.0); MONOCYTE% 4.9 % (3.0-12.0); NEUTROPHIL# 7.3 X10e3 (1.5-7.1); NEUTROPHIL% 85.3 % (40-75); PLATELET COUNT 169 X10e3 (140-420); RED BLOOD COUNT 4.46 X10e (3.90-5.60); RED CELL DISTRIBUTION WIDTH 14.3 % (11.0-15.5); WHITE BLOOD COUNT 8.6 X10e3 (4.0-10.5)
[2017-02-19 07:10] LABS: DIFF IND NO
[2017-02-20 05:58] LABS: BASOPHIL% 0.2 % (0-2.5); EOSINOPHIL% 0.3 % (0.0-7.0); LYMPHOCYTE# 1.3 X10e3 (1.0-3.5); LYMPHOCYTE% 15.2 % (17.0-45.0); MEAN CELL VOLUME 86.7 FL (83-96); MEAN CORPUSCULAR HEMOGLOBIN 28.2 PG (28-34); MEAN CORPUSCULAR HGB CONC 32.5 g/dL (30-36); MEAN PLATELET VOLUME 8.9 FL (6.5-11.5); MONOCYTE# 0.7 X10e3 (0-1.0); MONOCYTE% 7.4 % (3.0-12.0); NEUTROPHIL# 6.8 X10e3 (1.5-7.1); NEUTROPHIL% 76.9 % (40-75); PLATELET COUNT 209 X10e3 (140-420); RED BLOOD COUNT 4.27 X10e (3.90-5.60); RED CELL DISTRIBUTION WIDTH 14.1 % (11.0-15.5); WHITE BLOOD COUNT 8.8 X10e3 (4.0-10.5)
[2017-02-20 06:20] LABS: DIFF IND NO
[2017-02-20 06:24] LABS: ALBUMIN SERUM 2.7 g/dL (3.5-5.0); BILIRUBIN,TOTAL 0.5 mg/dL (0.2-2.0); CALCIUM SERUM 8.2 mg/dL (8.4-10.2); GLOM FILT RATE Estimated 99.9 mL/min (>60); MAGNESIUM 1.5 mg/dL (1.6-3.0); PHOSPHOROUS 1.1 mg/dL (2.5-4.6); PROTEIN TOTAL SERUM 5.5 g/dL (6.0-8.3)
[2017-02-20 06:27] LABS: POTASSIUM 2.9 mmol/L (3.5-5.1)
== END 2017-02-21 03:40 | DRG 917 ==
LOC: CEDOF 02:50 → CICCU2 02:50 → CEDOF 06:00 → CICCU2 06:00 → C4B 06:00 → CEDOF 07:49 → CICCU2 08:31 → CEDOF 08:31 → CICCU2 02-19 11:21 → C4B 02-20 02:32
PROVIDERS: Family Medicine; Internal Medicine
DX: T42.1X2A Poisoning by iminostilbenes, intentional self-harm, initial encounter (principal); G92 Toxic encephalopathy; J96.90 Respiratory failure, unspecified, unspecified whether with hypoxia or hypercapnia; J69.0 Pneumonitis due to inhalation of food and vomit; M62.82 Rhabdomyolysis; F05 Delirium due to known physiological condition; F15.20 Other stimulant dependence, uncomplicated; F11.20 Opioid dependence, uncomplicated; F31.4 Bipolar disorder, current episode depressed, severe, without psychotic features; Z90.49 Acquired absence of other specified parts of digestive tract; Z86.14 Personal history of Methicillin resistant Staphylococcus aureus infection; G40.909 Epilepsy, unspecified, not intractable, without status epilepticus; J45.909 Unspecified asthma, uncomplicated; K21.9 Gastro-esophageal reflux disease without esophagitis
CPT/HCPCS: 36600; 71010; 74000; 80048; 80053; 80156; 80202; 81003; 82308; 82550; 82553; 82803; 83735; 83880; 84100; 84132; 84484; 85025; 85610; 85730; 87040; 87086; 93306; 94640; 94760; 95816; J1040; J1170; J1940; J1953; J2060; J2405; J2543; J2920; J3370; J3475; J7060

== ENCOUNTER 2017-02-20 13:00 | Inpatient (IN) | payer OTHER ==
--- NOTE | ~2017-02-20 | PN ---
Unit #: [id number] #: [id number] Patient: NEW THOMAS [id number] [facility] [address] [place] [address] [id number] I MR#: [id number] NAME: NEW THOMAS ROOM: P211 Age: 31 Sex: M Admission Date: 02/21/2017 : 1985 Attending Physician: Dotty Gray M.D. Admitting Physician: Dotty Gray M.D. Primary Care Physician: Slim Doctor Not In System [facility] PROGRESS NOTES DATE February 23, 2017 DISCUSSION Mr. Thomas is a 31-year-old male, with substance abuse and mood disorder, who was seen today and chart was reviewed and the case was discussed with the staff. He has been anxious, withdrawn, and rather seclusive to himself. Meanwhile, he has been cooperative with the treatment recommendations and he has been taking the medications and tolerating them fairly well without any side effects. MENTAL STATUS EXAMINATION Young white male, who was casually dressed with fair personal hygiene and appears to be in no acute distress or discomfort. He was awake and alert with impaired attention and concentration. His mood is anxious with a congruent affect. He denies any suicidal or homicidal ideations, and also denies any auditory or visual hallucinations. His insight and judgment remain slightly impaired. TREATMENT PLAN 1. We will continue him on his current medications and treatment protocol, and will monitor his response to the medications, and make further adjustments as needed. 2. We will continue to followup. Dictated by... Ashley Hawkins/farhad TD: 02/24/2017 12:19 JOB #: [id number] Unit #: [id number] #: [id number] Patient: NEW THOMAS PROGRESS NOTES Page 1 of 1 X Dotty Gray MD PROGRESS NOTE
--- NOTE | ~2017-02-20 | DS ---
Unit #: [id number] #: [id number] Patient: NEW THOMAS [id number] [facility] [address] [place] [id number] I MR#: [id number] NAME: NEW THOMAS ROOM: P211 Age: 31 Sex: M Admission Date: 02/21/2017 : 1985 Discharge Date: 02/25/2017 Attending Physician: Dotty Gray M.D. Primary Care Physician: Generic Doctor Not In System DISCHARGE SUMMARY IDENTIFYING DATA Mr. Thomas is a 31-year-old white male who is a resident of [place], [place] and was transferred to us from [facility] Emergency Room with a chief complaint of "I'm trying to kill myself by taking heroin and prescription pain pills." DISCHARGE DIAGNOSES Psychiatric: Major depressive disorder, recurrent, moderate, without psychotic features; opioid dependence, moderate; methamphetamine dependence, moderate. Medical: Seizure disorder. Stressors: Moderate psychosocial stressors. HISTORY OF PRESENT ILLNESS Please see initial psychiatric evaluation for details. PAST PSYCHIATRIC HISTORY Please see initial psychiatric evaluation for details. PAST MEDICAL HISTORY Please see initial psychiatric evaluation for details. HOSPITAL COURSE The patient was admitted to the adult chemical dependency unit at [facility] [place] and was oriented to the hospital environment. Routine p.r.n. medications were initiated, and he was started back on his home medications. However, it was noticed that he was seen to be showing very poor insight into his situation and inappropriate attitude and behavior and not investing in treatment and rather constantly wanting to leave and was on 72 hours hold due to making suicidal threats in the emergency room. However, he was using F words and cursing and was not showing any insight into his situation and no motivation towards treatment and as soon as the 72 hours hold , he was wanting to leave and was denying any suicidal ideations, intent, or plan and as such, it was decided that he will be discharged home and will continue treatment on an outpatient basis. DISCHARGE MEDICATIONS None. DISCHARGE CONDITION Stable. PROGNOSIS Guarded. Unit #: [id number] #: [id number] Patient: NEW THOMAS Dictated by... Dotty Gray M.D. IAA/modl TD: 02/25/2017 07:13 JOB #: [id number] DISCHARGE SUMMARY Page 1 of 1 X Dotty Gray MD DISCHARGE SUMMARY
--- NOTE | ~2017-02-20 | PN ---
Unit #: [id number] #: [id number] Patient: NEW THOMAS 104745 [facility] [address] [place] [address] [id number] I MR#: [id number] NAME: NEW THOMAS ROOM: P211 Age: 31 Sex: M Admission Date: 02/21/2017 : 1985 Attending Physician: Dotty Gray M.D. Admitting Physician: Dotty Gray M.D. Primary Care Physician: Generic Doctor Not In System [facility] PROGRESS NOTES DATE February 22, 2017 DISCUSSION Mr. Thomas is a 31-year-old white male, who was seen today and chart was reviewed and the case was discussed with the staff. He has been anxious, withdrawn, and still appears to be going through some detox, he has been cooperative with the treatment recommendations and he has been taking the medications and tolerating them fairly well. MENTAL STATUS EXAMINATION Young white male, who was casually dressed with fair personal hygiene and appears to be in no acute distress or discomfort. He was awake and alert on interaction with intact orientation. His mood is anxious with a congruent affect. He denies any suicidal or homicidal ideations. His insight and judgment remain slightly impaired. TREATMENT PLAN 1. We will continue him on his current medications and treatment protocol, and will monitor his response to the medications, and make further adjustments as needed. 2. We will continue to followup. Dictated by... Ashley Hawkins/farhad TD: 02/23/2017 15:21 JOB #: [id number] Unit #: [id number] #: [id number] Patient: NEW THOMAS PROGRESS NOTES Page 1 of 1 X Dotty Gray MD PROGRESS NOTE
--- NOTE | ~2017-02-20 | PN ---
Unit #: [id number] #: [id number] Patient: NEW THOMAS [id number] [facility] [address] [place] [address] [id number] MR#: [id number] NAME: NEW THOMAS ROOM: P211 Age: 31 Sex: M Admission Date: 02/21/2017 : 1985 Attending Physician: Dotty Gray M.D. Admitting Physician: Dotty Gray M.D. Primary Care Physician: Generic Doctor Not In System [facility] PROGRESS NOTES DATE 02/24/2017 DISCUSSION Mr. Thomas is a 31-year-old white male with substance abuse and mood disorder who was seen today and chart was reviewed and case was discussed with the staff. He has been anxious, withdrawn and rather seclusive to himself and has been showing very inappropriate attitude, behavior and ____ and calling names saying that he should not be here and that we are doing nothing for him as he is here for depression and substance abuse and was transferred on 72 hour hold and continues to show very poor insight into his situation, poor motivation towards treatment recommendations and remains a poor prognosis. Dictated by... Ashley Hawkins/forrest TD: 02/24/2017 21:31 JOB #: [id number] [facility] PROGRESS NOTES Page 1 of 1 X Dotty Gray MD X PROGRESS NOTE
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
== END 2017-02-25 10:47 | disposition home or self-care (01) | DRG 885 ==
LOC: P2S 02-21 03:55
DX: F33.1 Major depressive disorder, recurrent, moderate (principal); F11.20 Opioid dependence, uncomplicated; R45.851 Suicidal ideations; F15.20 Other stimulant dependence, uncomplicated; G40.909 Epilepsy, unspecified, not intractable, without status epilepticus; Z88.5 Allergy status to narcotic agent